=== PATIENT | female | born 1965 | race Caucasian/White ===

== ENCOUNTER 2019-01-19 18:38 | Emergency (ER) | payer OTHER ==
[2019-01-19] MEDS: KETOROLAC 30 MG INJ IM (21:23)
== END 2019-01-19 23:25 | disposition home or self-care (01) ==
LOC: FTE 23:25
DX: M79.7 Fibromyalgia (principal); M25.512 Pain in left shoulder; M25.562 Pain in left knee; M19.90 Unspecified osteoarthritis, unspecified site
CPT/HCPCS: 73030; 73510; 73562; 73610; 96372; 99284-25

== ENCOUNTER 2019-03-23 10:27 | Emergency (ER) | payer OTHER ==
[2019-03-23 11:45] LABS: ADD MAN DIFF? NO
[2019-03-23 11:46] LABS: WHITE BLOOD COUNT 4.7 10^3/ul (4.8-10.8)
[2019-03-23 11:46] LABS: BASOPHILS % 0.8 % (0.0-2.0); EOSINOPHILS # 0.2 10^3/ul (0.0-0.5); EOSINOPHILS % 5.1 % (0.0-7.0); HEMATOCRIT 44.2 % (37.0-47.0); HEMOGLOBIN 14.2 g/dl (12.0-16.0); LYMPHOCYTES # 1.9 10^3/ul (0.8-2.9); LYMPHOCYTES % 39.9 % (15.0-51.0); MEAN CORPUSCULAR HEMOGLOBIN 30.5 pg (29.0-33.0); MEAN CORPUSCULAR HGB CONC 32.1 g/dl (32.0-37.0); MEAN CORPUSCULAR VOLUME 94.8 fl (82.0-101.0); MEAN PLATELET VOLUME 10.8 fl (7.4-10.4); MONOCYTE # 0.4 10^3/ul (0.3-0.9); MONOCYTES % 9.3 % (0.0-11.0); NEUTROPHIL # 2.1 10^3/ul (1.6-7.5); NEUTROPHILS % 44.7 % (39.0-77.0); PLATELET COUNT 257 10^3/UL (140-415); RED BLOOD COUNT 4.66 10^6/ul (4.20-5.40)
[2019-03-23 11:53] LABS: URINE BLOOD (Dip) POC Trace-lysed (NEGATIVE); URINE GLUCOSE (Dip) POC Negative (NEGATIVE); URINE KETONES (Dip) POC Negative (NEGATIVE); URINE LEUKOCYTE EST (Dip) POC Trace (NEGATIVE); URINE NITRITE (Dip) POC Negative (NEGATIVE); URINE TOTAL PROTEIN POC Negative (NEGATIVE)
[2019-03-23 11:53] LABS: URINE PH (Dip) POC 5.5 (5.0-8.5)
[2019-03-23] MEDS: ONDANSETRON 4 MG INJ IV (12:03)
[2019-03-23] MEDS: KETOROLAC 15 MG INJ IV (12:03)
[2019-03-23] MEDS: LOPERAMIDE 2 MG CAP PO (12:03)
[2019-03-23 12:06] LABS: ALANINE AMINOTRANSFERASE 87 IU/L (13-69); ALBUMIN 4.2 g/dl (3.3-4.9); ALBUMIN/GLOBULIN RATIO 1.16; ALKALINE PHOSPHATASE 104 IU/L (42-121); ANION GAP 7 (5-13); ASPARTATE AMINO TRANSFERASE 86 IU/L (15-46); BILIRUBIN,INDIRECT 0.5 mg/dl (0-1.1); BILIRUBIN,TOTAL 0.5 mg/dl (0.2-1.3); BLOOD UREA NITROGEN 9 mg/dl (7-20); CARBON DIOXIDE 29 mmol/L (21-31); CHLORIDE 106 mmol/L (97-110); CREATININE 0.64 mg/dl (0.44-1.00); Estimated GFR > 60 mL/min (>60); GLUCOSE 92 mg/dl (70-220); LIPASE 27 U/L (23-300); POTASSIUM 4.3 mmol/L (3.5-5.1); SODIUM 142 mmol/L (135-144); TOTAL PROTEIN 7.8 g/dl (6.1-8.1)
== END 2019-03-23 14:24 | disposition home or self-care (01) ==
LOC: E/R 14:24
DX: R10.84 Generalized abdominal pain (principal); R11.10 Vomiting, unspecified; R19.7 Diarrhea, unspecified
CPT/HCPCS: 36415; 74176; 80053; 81003; 81025; 83690; 85025; 96374; 96375; 99285-25

== ENCOUNTER 2019-05-22 21:37 | Emergency (ER) | payer OTHER ==
[2019-05-22 23:46] LABS: ADD UMIC YES; UR ASCORBIC ACID 20 mg/dL (NEGATIVE); UR BACTERIA FEW /HPF (NONE SEEN); UR BILIRUBIN (Dip) NEGATIVE (NEGATIVE); UR BLOOD (Dip) 2+ mg/dL (NEGATIVE); UR CLARITY CLOUDY (CLEAR); UR COLOR YELLOW (YELLOW); UR GLUCOSE (Dip) NEGATIVE (NEGATIVE); UR KETONES (Dip) NEGATIVE (NEGATIVE); UR LEUKOCYTE ESTERASE (Dip) 3+ Leu/ul (NEGATIVE); UR MUCUS FEW /HPF (NONE SEEN); UR NITRITE (Dip) NEGATIVE (NEGATIVE); UR RBC 99 /HPF (0-5); UR SPECIFIC GRAVITY (Dip) 1.027 (1.003-1.030); UR SQUAMOUS EPITHELIAL CELL FEW /HPF (FEW); UR TOTAL PROTEIN (Dip) 1+ mg/dl (NEGATIVE); UR UROBILINOGEN (Dip) NEGATIVE (NEGATIVE); UR WBC > 182 /HPF (0-5)
[2019-05-23] MEDS: ACETAMINOPHEN 325 MG TAB PO (00:32)
[2019-05-23] MEDS: AZITHROMYCIN 500 MG TAB PO (02:54)
[2019-05-23] MEDS: CEFTRIAXONE 250 MG INJ IM (02:54)
[2019-05-23] MEDS: metroNIDAZOLE 500 MG TAB PO (03:04)
== END 2019-05-23 04:20 | disposition home or self-care (01) ==
LOC: FTE 05-23 04:20
DX: N73.9 Female pelvic inflammatory disease, unspecified (principal); H10.9 Unspecified conjunctivitis; N39.0 Urinary tract infection, site not specified
CPT/HCPCS: 76830; 76856; 81001; 81025; 87070; 87086; 87210; 87220; 96372; 99285-25

== ENCOUNTER → 2019-06-26 | Emergency (ER) | payer OTHER ==
[2019-06-26] MEDS: TETRACAINE 0.5% 4 ML OPH LEFT EYE (07:08)
[2019-06-26] MEDS: FLUORESCEIN STRIP LEFT EYE (07:08)
== END | disposition home or self-care (01) ==
LOC: FTE 06:44
DX: H57.9 Unspecified disorder of eye and adnexa (principal)
CPT/HCPCS: 76536; 99284-25